=== PATIENT | female | born 2000 | race Two or more races ===

== ENCOUNTER 2022-01-04 16:48 | Emergency (ER) | payer SELFPAY ==
[2022-01-04] MEDS ORDERED: Sodium Chloride 0.9% 1,000 ML IV ONE (16:57)
[2022-01-04] MEDS ORDERED: LORazepam 2 MG/ML SDV IVPUSH ONE (17:02)
[2022-01-04 17:45] LABS: ACETAMINOPHEN <2.0 ug/mL; BLOOD UREA NITROGEN,BUN 5 mg/dL (7.0-18.0); CARBON DIOXIDE,CO2 24.1 mmol/L (21.0-32.0); CHLORIDE,CL 102 mmol/L (98-107); GLUCOSE RANDOM 109 mg/dL (74-106); POTASSIUM,K 3.3 mmol/L (3.5-5.1); SODIUM,NA 139 mmol/L (136-145)
[2022-01-04 17:48] LABS: ESTIMATED GFR 93 mL/min (>60)
== END 2022-01-04 18:27 | disposition home or self-care (01) ==
LOC: MW.ED 16:48
DX: F32.A Depression, unspecified (principal); T43.222A Poisoning by selective serotonin reuptake inhibitors, intentional self-harm, initial encounter
CPT/HCPCS: 36415; 80053; 80143; 80179; 83735; 85025; 93005; 96361; 96374; 99285; J2060; J7030